=== PATIENT | female | born 2000 | race Caucasian/White ===

== ENCOUNTER 2019-11-19 15:46 | Outpatient (CLI) | payer MEDICAID ==
[2019-11-19 16:46] LABS: BASOPHILS 0.1 % (0-2); EOSINOPHILS 0.6 % (0-7); HEMATOCRIT 33.9 % (36.0-48.0); HEMOGLOBIN 10.8 g/dL (12-16); IMMATURE GRANULOCYTES 0.4 % (0-5); MCH 26.9 pg (26.0-34.0); MCHC 31.9 g/dL (31.0-37.0); MCV 84.5 fL (80.0-100.0); MEAN PLATELET VOLUME 10.2 fL (7.4-10.4); MONOCYTES 10.4 % (2-11); NEUTROPHILS 73.5 % (40-80); PLATELET COUNT 273 10x3/uL (130-400); RBC 4.01 10x6/uL (4.00-5.40); RDW 12.7 % (11.5-14.5); WBC 11.7 10x3/uL (4.8-10.8)
[2019-11-19 17:07] LABS: CALC OSMOLALITY 274 mosm/kg (275-300); CALCIUM 9.2 mg/dL (8.5-10.1); CARBON DIOXIDE 25.1 mmol/L (21.0-32.0); CHLORIDE - SERUM 105 mmol/L (98-107); CREATININE - SERUM 0.5 mg/dL (0.6-1.3); GLUCOSE 85 mg/dL (74-106); POTASSIUM - SERUM 4.3 mmol/L (3.5-5.1); SODIUM 139 mmol/L (136-145); UREA NITROGEN 8 mg/dL (7-18); eGFR NON AFRICAN AMERICAN > 90 mL/min (90-120)
[2019-11-19 17:15] LABS: ALKALINE PHOSPHATASE 103 U/L (30-120); ALT (SGPT) 16 U/L (10-68); AMYLASE - SERUM 55 U/L (25-115); LIPASE 84 U/L (73-393); PROTEIN - SERUM 6.6 g/dL (6.4-8.2)
[2019-11-19 18:02] LABS: GLUCOSE NEGATIVE (NEGATIVE); NITRITE POSITIVE (NEGATIVE); SPECIFIC GRAVITY 1.015 (1.005-1.020)
[2019-11-19 18:03] LABS: BILIRUBIN NEGATIVE (NEGATIVE); KETONE NEGATIVE (NEGATIVE); UROBILINOGEN NORMAL (NORMAL)
[2019-11-19 18:04] LABS: BACTERIA MANY /hpf (NEGATIVE); RED CELLS - URINE OCC /hpf (0-5); WHITE CELLS - URINE 0-5 /hpf (NEGATIVE)
== END 2019-11-19 20:48 | disposition home or self-care (01) ==
LOC: D.LDO 15:46
PROVIDERS: ATTEND Student in an Organized Health Care Education/Training Program
DX: O21.9 Vomiting of pregnancy, unspecified (principal); Z3A.00 Weeks of gestation of pregnancy not specified; R10.9 Unspecified abdominal pain

== ENCOUNTER 2020-01-06 11:48 | Outpatient (CLI) | payer MEDICAID ==
[2020-01-06 12:33] LABS: BACTERIA FEW /hpf (NEGATIVE); BILIRUBIN NEGATIVE (NEGATIVE); EPITHELIAL CELLS 0-5 /hpf (0-5); GLUCOSE NEGATIVE (NEGATIVE); KETONE NEGATIVE (NEGATIVE); NITRITE NEGATIVE (NEGATIVE); RED CELLS - URINE 0-5 /hpf (0-5); UROBILINOGEN NORMAL (NORMAL)
== END 2020-01-06 13:51 | disposition home or self-care (01) ==
LOC: D.LDO 11:48
PROVIDERS: ATTEND Obstetrics & Gynecology
DX: O26.893 Other specified pregnancy related conditions, third trimester (principal); Z3A.38 38 weeks gestation of pregnancy; N89.8 Other specified noninflammatory disorders of vagina

== ENCOUNTER 2020-01-16 21:36 | Inpatient (IN) | payer MEDICAID ==
[~2020-01-16] VITALS: Ht 162.6 cm; Wt 76.4 kg
[2020-01-16 22:59] LABS: HEMATOCRIT 31.2 % (36.0-48.0); HEMOGLOBIN 9.7 g/dL (12-16); MCHC 31.1 g/dL (31.0-37.0); MEAN PLATELET VOLUME 12.3 fL (7.4-10.4); RBC 4.05 10x6/uL (4.00-5.40); RDW 14.7 % (11.5-14.5)
[2020-01-16 23:27] VITALS: BP 129/65; Ht 162.6 cm; Wt 76.4 kg
[2020-01-17 08:09] LABS: BILIRUBIN NEGATIVE (NEGATIVE); GLUCOSE NEGATIVE (NEGATIVE); KETONE SMALL mg/dL (NEGATIVE); NITRITE NEGATIVE (NEGATIVE); UROBILINOGEN NORMAL (NORMAL); WHITE CELLS - URINE 0-5 /hpf (NEGATIVE)
[2020-01-17 08:10] LABS: BACTERIA MANY /hpf (NEGATIVE); CALCIUM OXALATE CRYSTALS 0-5 /hpf (NONE SEEN); EPITHELIAL CELLS 0-5 /hpf (0-5); RED CELLS - URINE 0-5 /hpf (0-5)
[2020-01-17 08:16] LABS: UDS - AMPHET NEGATIVE QUAL (NEGATIVE); UDS - BARB NEGATIVE QUAL (NEGATIVE); UDS - BENZO NEGATIVE QUAL (NEGATIVE); UDS - COCAINE NEGATIVE QUAL (NEGATIVE); UDS - OPIATE NEGATIVE QUAL (NEGATIVE); UDS - PCP NEGATIVE QUAL (NEGATIVE); UDS - THC NEGATIVE QUAL (NEGATIVE)
[2020-01-18 11:11] LABS: RAPID PLASMA REAGIN Reactive (Non Reactive); TREPONEMA PALLIDUM AB Non Reactive (Non Reactive)
== END 2020-01-17 17:34 | disposition home or self-care (01) | DRG 833 ==
LOC: D.LDO 21:36 → D.LD 22:27
PROVIDERS: ADMIT Student in an Organized Health Care Education/Training Program; ATTEND Student in an Organized Health Care Education/Training Program
PROC: 3E033VJ Introduction of Other Hormone into Peripheral Vein, Percutaneous Approach (ICD-10-PCS; principal; 2020-01-17)
DX: O61.0 Failed medical induction of labor (principal); Z3A.39 39 weeks gestation of pregnancy

== ENCOUNTER 2020-01-20 20:03 | Inpatient (IN) | payer MEDICAID ==
[~2020-01-20] VITALS: Ht 162.6 cm; Wt 73.9 kg
[2020-01-20 20:19] VITALS: BP 124/67; Ht 162.6 cm; Wt 73.9 kg
--- NOTE | 2020-01-20 21:28 | NUR ---
DR BELTRE NOTIFIED OF PT's BEHAVIOR AND ASSESSMENT RESULTS. PT IS A LOW RISK PER DR BELTRE. DR BELTRE STATED TO GIVE RESOURCES TO PT AT TIME OF DISCHARGE. NO FURTHER ORDERS AT THIS TIME, RESOURCE REVIEWED WITH PT AD SHE VERBALIZED UNDERSTANDING.
[2020-01-20 21:30] LABS: HEMOGLOBIN 9.3 g/dL (12-16); MCH 23.8 pg (26.0-34.0); MCV 76.9 fL (80.0-100.0); MEAN PLATELET VOLUME 11.6 fL (7.4-10.4); PLATELET COUNT 205 10x3/uL (130-400); RDW 14.9 % (11.5-14.5); WBC 9.1 10x3/uL (4.8-10.8)
[2020-01-20 21:41] LABS: BILIRUBIN NEGATIVE (NEGATIVE); GLUCOSE NEGATIVE (NEGATIVE); KETONE NEGATIVE (NEGATIVE); NITRITE NEGATIVE (NEGATIVE); UROBILINOGEN NORMAL (NORMAL)
[2020-01-20 21:42] LABS: RED CELLS - URINE NONE SEEN /hpf (0-5); UDS - AMPHET NEGATIVE QUAL (NEGATIVE); UDS - BARB NEGATIVE QUAL (NEGATIVE); UDS - BENZO NEGATIVE QUAL (NEGATIVE); UDS - COCAINE NEGATIVE QUAL (NEGATIVE); UDS - OPIATE NEGATIVE QUAL (NEGATIVE); UDS - PCP NEGATIVE QUAL (NEGATIVE); UDS - THC NEGATIVE QUAL (NEGATIVE)
[2020-01-20 21:43] LABS: BACTERIA MODERATE /hpf (NEGATIVE)
[2020-01-20 22:10] LABS: EOSINOPHILS 1 % (0-7); LYMPHOCYTES 22 % (15-50); MONOCYTES 3 % (2-11); NEUTROPHILS 72 % (40-80); PLATELET ESTIMATE NORMAL
--- NOTE | 2020-01-22 00:50 | NUR ---
PT MOVED TO 1257 AT THIS TIME.
--- NOTE | 2020-01-22 01:35 | NUR ---
PT HAS BEEN MOVED TO THE TUB ROOM. TOOK OVER CARE FROM L/D NURSES. PT AND SO ARE AWAKE AND ALERT. PT STATES SHE IS STARVING AND A SANDWICH TRAY WAS PROVIDED WELL A DRINK. SHE STATES SHE HAS NO PAIN. FUNDUS IS FIRM. SHE HAS A SL IN THE R WRIST. SHE HAS BEEN UP TO VOID ONCE WITH 900 ML THE TOTAL. PT IS UP AND AMBULATORY. I PICKED HER UP FROM THE NURSERY B/C SHE AND SO WANTED TO SEE THE FIRST BATH. PT GOT LIGHT HEADED AND SHE WAS RETURNED TO HER ROOM. I TALKED WITH L/D AND TOOK OVER PT CARE. SHE KNOW TO USE HER CALL LIGHT IF SHE NEEDS ANYTHING.
--- NOTE | 2020-01-22 01:57 | NUR ---
REPORT GIVEN TO Juan SALINAS RN
--- NOTE | 2020-01-22 06:05 | NUR ---
PT IS RESTING WELL. NO C/O AT THIS TIME.
[2020-01-22 07:03] LABS: BASOPHILS 0.1 % (0-2); EOSINOPHILS 0.1 % (0-7); HEMATOCRIT 28.1 % (36.0-48.0); HEMOGLOBIN 8.5 g/dL (12-16); IMMATURE GRANULOCYTES 0.2 % (0-5); LYMPHOCYTES 12.7 % (15-50); MCH 23.2 pg (26.0-34.0); MCHC 30.2 g/dL (31.0-37.0); MCV 76.8 fL (80.0-100.0); MEAN PLATELET VOLUME 12.1 fL (7.4-10.4); MONOCYTES 9.7 % (2-11); NEUTROPHILS 77.2 % (40-80); PLATELET COUNT 190 10x3/uL (130-400); RBC 3.66 10x6/uL (4.00-5.40); RDW 14.8 % (11.5-14.5)
[2020-01-22 07:04] LABS: WBC 13.4 10x3/uL (4.8-10.8)
[2020-01-22 07:16] LABS: RAPID PLASMA REAGIN Non Reactive (Non Reactive)
[2020-01-22 09:30] VITALS: BP 111/59
--- NOTE | 2020-01-22 09:30 | NUR ---
TO ROOM FOR ASSESSMENT. ASSESSMENT COMPLETED. SEE FLOWSHEET. SIGNIFICANT OTHER AT BEDSIDE HOLDING BABY. PT C/O UTERINE CRAMPING. FUNDUS FIRM 1 BELOW THE UMBILICUS; BLEEDING SMALL TO SCANT. MOTRIN GIVEN FOR PAIN. PT UP TO SHOWER.
--- NOTE | 2020-01-22 10:28 | NUR ---
ROOM CHECK. PT SITTING UP IN BED WITH BABY IN ARMS. STATES PAIN IS MUCH BETTER AFTER SHOWER AND MOTRIN. NO OTHER NEEDS AT THIS TIME.
--- NOTE | 2020-01-22 11:50 | NUR ---
ROOM CHECK. PT SLEEPING; SIGNIFICANT OTHER AT BEDSIDE.
--- NOTE | 2020-01-22 12:09 | NUR ---
TUCKS AND DERMAPLAST GIVEN TO PT. INSTRUCTED ON USE. PT STATES UNDERSTANDING.
--- NOTE | 2020-01-22 14:14 | NUR ---
ROUNDS MADE. PT RESTING IN BED. SIGNIFICANT OTHER AT BEDSIDE WITH BABY IN ARMS. PT ASKING WHEN SHE CAN HAVE MOTRIN AGAIN. INFORMED PT SHE WILL BE ABLE TO HAVE IT AGAIN AT 1445. NO OTHER NEEDS OR CONCERNS VOICED AT THIS TIME.
--- NOTE | 2020-01-22 17:16 | NUR ---
ROUNDS MADE. PT SITTIN UP EATING DINNER. FEMALE VISITOR AT BEDSIDE. NO NEEDS VOICED AT THIS TIME.
--- NOTE | 2020-01-22 19:45 | NUR ---
PT VISITING WITH MOM, INFORMED PT THAT I WILL BE BACK SHORTLY TO DO ASSESSMENT, PT VERBALIZES UNDERSTANDING, DENIES NEEDS OR PAIN AT THIS TIME
[2020-01-22 20:25] VITALS: BP 122/75
--- NOTE | 2020-01-22 20:25 | NUR ---
ASSESSMENT PER FLOW SHEET, VS OBTAINED, SALINE LOCK IN RIGHT HAND INTACT WITH NO REDNESS OR EDEMA, FF, ML, U/2, LITE BLEEDING NOTED WITH NO CLOTS, PT REPORTS FLATUS, BM TODAY, AND VOIDING WITH NO DIFFICULTY, PT DENIES NEEDS OR PAIN, PT'S MOM BOTTLE AT THIS TIME
--- NOTE | 2020-01-22 21:38 | NUR ---
PT BOTTLE FEEDING INFANT, C/O CRAMPING, ADM IRON AND MOTRIN PER MD ORDERS, SEE EMAR, PT DENIES FURTHER NEEDS, PT'S MOM AT BEDSIDE
--- NOTE | 2020-01-22 22:15 | NUR ---
PT LOOKING AT CELL PHONE, LAYING IN BED BESIDE PT, PT DENIES NEEDS OR PAIN AT THIS TIME, PT'S MOM AT BEDSIDE
--- NOTE | 2020-01-23 | NUR ---
PT AMB TO FINGERPRINTER, GAIT STEADY, REQUESTED AND PROVIDED CUP OF ICE AND FERNANDEZ CRACKERS, DENIES FURTHER NEEDS OR PAIN, PT BACK TO ROOM
--- NOTE | 2020-01-23 02:17 | NUR ---
PT RESTING WITH EYES CLOSED, RESP QUIET, NO DISTRESS NOTED, LEFT UNDISTURBED AT THIS TIME, SLEEPING IN OPEN CRIB CART AT BEDSIDE, PT'S MOM ASLEEP ON COUCH
--- NOTE | 2020-01-23 04:24 | NUR ---
INFANT SLEEPING WITH EVEN RESPIRATIONS IN OPEN CRIB NEXT TO MOTHERS BED.
--- NOTE | 2020-01-23 04:24 | NUR ---
PT RESTING WITH EYES CLOSED, RESP QUIET, NO DISTRESS NOTED, LEFT UNDISTURBED AT THIS TIME, ASLEEP IN OPEN CRIB CART BESIDE COUCH, PT'S MOM SLEEPING ON COUCH
--- NOTE | 2020-01-23 06:28 | NUR ---
PT RESTING, AROUSES TO OPENING OF DOOR, DENIES NEEDS OR PAIN, NSY NURSE IN ROOM FOR INFANT ROOM CHECK, PT'S MOM SLEEPING ON COUCH
[2020-01-23 07:30] VITALS: BP 120/61
--- NOTE | 2020-01-23 07:30 | NUR ---
ASSESSMENT COMPLETE. VSS. RATES PAIN 5/10, ABD CRAMPING. MOTRIN GIVEN PER ORDERS. SL RIGHT HAND SITE WNL. PATIENT A&O X 4. FAMILY MEMBER AT BEDSIDE. PATIENT DENIES ANY NEEDS AT THIS TIME. CALL LIGHT IN REACH, SIDE RAILS UP X 2.
--- NOTE | 2020-01-23 08:20 | NUR ---
ROOM CHECK. PAIN LEVEL DOWN TO 3/10. PATIENT RESTING IN BED, DENIES NEEDS. FAMILY MEMEBER IN ROOM SNUGLLING BABY. CALL LIGHT IN REACH, SIDE RAILS UP X2.
--- NOTE | 2020-01-23 09:35 | NUR ---
ROOM CHECK. 9AM MEDICATIONS GIVEN. PATIENT SNUGGLING BABY IN BED. DENIES NEEDS AT THIS TIME. FAMILY MEMBER IN ROOM. CALL LIGHT IN REACH, SIDE RAILS UP X2.
--- NOTE | 2020-01-23 10:15 | NUR ---
ROOM CHECK. PATIENT SLEEPING. BREATHING EVEN AND UNLABORED. NO SIGNS OF DISTRESS. WILL LEAVE PAITIENT SLEEPING. FAMILY MEMEBER IN ROOM DENIED ANY NEEDS. CALL LIGHT IN REACH, SIDE RAILS UP X 2.
--- NOTE | 2020-01-23 11:56 | NUR ---
ROOM CHECK. PATIENT DENIES ANY NEEDS AT THIS TIME. FAMILY MEMBER IN ROOM. CALL LIGHT IN REACH, SIDE RAILS UP X 2.
--- NOTE | 2020-01-23 13:15 | NUR ---
ROOM CHECK. PATIENT DENIES NEEDS. PATIENT UP WALKING AROUND IN ROOM. FAMILY MEMBER SNUGLLING BABY.
--- NOTE | 2020-01-23 14:30 | NUR ---
DISCHARGE ORDERS RECIEVED FROM DR FUENTES. SL RIGHT HAND D/C'D WITH TIP INTACT. PRESSURE AND BAND AIDE APPLIED. PATIENT DENIES ANY NEEDS AT THIS TIME. BABY ASLEEP IN CRIB. FAMILY MEMEBER IN ROOM. PATIENT UP IN ROOM GETTING READY TO TAKE A SHOWER.
--- NOTE | 2020-01-23 15:10 | NUR ---
ROOM CHECK. PATIENT RESTING. DENIES NEEDS. CALL LIGHT IN REACH, SIDE RAILS UP X2.
--- NOTE | 2020-01-23 16:30 | NUR ---
DISCHARGE INSTRUCTIONS AND EDUCATION GIVEN TO PATIENT. PATIENT VERBALIZES UNDERSTANDING AND AGREEMENT. SHE WILL CALL TOMORROW TO SCHEUDLE HER F/U IN 6 WEEKS.
--- NOTE | 2020-01-23 17:00 | NUR ---
PATIENT AND BABY DISCHARGED HOME VIA WHEELCHAIR TO PRIVATE TRUCK DRIVEN BY FOB. PATIENT AND FOB DENY ANY QUESTIONS/CONCERNS AT THIS TIME.
== END 2020-01-23 17:28 | disposition home or self-care (01) | DRG 807 ==
LOC: D.LD 20:03
PROVIDERS: Obstetrics & Gynecology; ADMIT Student in an Organized Health Care Education/Training Program; ATTEND Student in an Organized Health Care Education/Training Program
PROC: 10E0XZZ Delivery of Products of Conception, External Approach (ICD-10-PCS; principal; 2020-01-21)
PROC: 10907ZC Drainage of Amniotic Fluid, Therapeutic from Products of Conception, Via Natural or Artificial Opening (ICD-10-PCS; 2020-01-21)
PROC: 3E033VJ Introduction of Other Hormone into Peripheral Vein, Percutaneous Approach (ICD-10-PCS; 2020-01-21)
DX: O80 Encounter for full-term uncomplicated delivery (principal); Z37.0 Single live birth; Z3A.40 40 weeks gestation of pregnancy